=== PATIENT | female | born 1940 | race Caucasian/White ===

== ENCOUNTER → 2017-04-12 04:00 | Outpatient (REF) | payer MEDICARE, SELFPAY ==
[2017-04-12 08:26] LABS: Prothrombin Time Fingerstick 24.9 SEC (11.9-14.4)
== END ==
LOC: OLS.ACW200 04:00
PROVIDERS: Visit Provider Family Medicine
DX: I50.84 End stage heart failure (principal); I27.0 Primary pulmonary hypertension; I35.0 Nonrheumatic aortic (valve) stenosis; J96.10 Chronic respiratory failure, unspecified whether with hypoxia or hypercapnia; I48.91 Unspecified atrial fibrillation
CPT/HCPCS: 36416; 85610

== ENCOUNTER → 2017-04-22 05:00 | Outpatient (REF) | payer MEDICARE, SELFPAY ==
[2017-04-22 11:25] LABS: Prothrombin Time Fingerstick 20.8 SEC (11.9-14.4)
== END ==
LOC: OLS.ACW200 05:00
PROVIDERS: Visit Provider Family Medicine
DX: I50.84 End stage heart failure (principal); I27.0 Primary pulmonary hypertension; I35.0 Nonrheumatic aortic (valve) stenosis; J96.10 Chronic respiratory failure, unspecified whether with hypoxia or hypercapnia; I48.91 Unspecified atrial fibrillation
CPT/HCPCS: 36416; 85610

== ENCOUNTER → 2017-04-26 05:00 | Outpatient (REF) | payer MEDICARE, SELFPAY ==
[2017-04-26 08:32] LABS: Prothrombin Time Fingerstick 21.9 SEC (11.9-14.4)
== END ==
LOC: OLS.ACW200 05:00
PROVIDERS: Visit Provider Family Medicine
DX: I50.84 End stage heart failure (principal); I27.0 Primary pulmonary hypertension; I35.0 Nonrheumatic aortic (valve) stenosis; J96.10 Chronic respiratory failure, unspecified whether with hypoxia or hypercapnia; I48.91 Unspecified atrial fibrillation
CPT/HCPCS: 36416; 85610

== ENCOUNTER → 2017-04-29 05:00 | Outpatient (REF) | payer MEDICARE, SELFPAY ==
[2017-04-29 09:20] LABS: Prothrombin Time Fingerstick 27.2 SEC (11.9-14.4)
== END ==
LOC: OLS.ACW200 05:00
PROVIDERS: Visit Provider Family Medicine
DX: I50.84 End stage heart failure (principal); I27.0 Primary pulmonary hypertension; I35.0 Nonrheumatic aortic (valve) stenosis; J96.10 Chronic respiratory failure, unspecified whether with hypoxia or hypercapnia; I48.91 Unspecified atrial fibrillation
CPT/HCPCS: 36416; 85610

== ENCOUNTER → 2017-05-03 04:00 | Outpatient (REF) | payer MEDICARE, SELFPAY | LOC: OLS.ACW200 04:00 | PROVIDERS: Visit Provider Family Medicine | DX: I50.84 End stage heart failure (principal); I27.0 Primary pulmonary hypertension; I35.0 Nonrheumatic aortic (valve) stenosis; J96.10 Chronic respiratory failure, unspecified whether with hypoxia or hypercapnia; I48.91 Unspecified atrial fibrillation | CPT/HCPCS: 36416; 85610 ==

== ENCOUNTER → 2017-05-06 05:00 | Outpatient (REF) | payer MEDICARE, SELFPAY ==
[2017-05-06 09:16] LABS: Prothrombin Time Fingerstick 36.9 SEC (11.9-14.4)
== END ==
LOC: OLS.ACW200 05:00
PROVIDERS: Visit Provider Family Medicine
DX: I50.84 End stage heart failure (principal); I27.0 Primary pulmonary hypertension; I35.0 Nonrheumatic aortic (valve) stenosis; J96.10 Chronic respiratory failure, unspecified whether with hypoxia or hypercapnia; I48.91 Unspecified atrial fibrillation
CPT/HCPCS: 36416; 85610

== ENCOUNTER → 2017-05-10 05:00 | Outpatient (REF) | payer MEDICARE, SELFPAY ==
[2017-05-10 07:41] LABS: Prothrombin Time Fingerstick 39.4 SEC (11.9-14.4)
[2017-05-10 08:22] LABS: Prothrombin Time (Protime)PT. 38.5 SECONDS (11.7-14.9)
[2017-05-10 09:09] LABS: International Normalized Ratio 3.9
== END ==
LOC: OLS.ACW200 05:00
PROVIDERS: Visit Provider Internal Medicine
DX: I50.84 End stage heart failure (principal); I27.0 Primary pulmonary hypertension; I35.0 Nonrheumatic aortic (valve) stenosis; J96.10 Chronic respiratory failure, unspecified whether with hypoxia or hypercapnia; I48.91 Unspecified atrial fibrillation
CPT/HCPCS: 36416; 85610

== ENCOUNTER → 2017-05-11 05:00 | Outpatient (REF) | payer MEDICARE, SELFPAY ==
[2017-05-11 08:26] LABS: International Normalized Ratio 4.5; Prothrombin Time (Protime)PT. 43.1 SECONDS (11.7-14.9)
== END ==
LOC: OLS.ACW200 05:00
PROVIDERS: Visit Provider Family Medicine
DX: I50.84 End stage heart failure (principal); I27.0 Primary pulmonary hypertension; I35.0 Nonrheumatic aortic (valve) stenosis; J96.10 Chronic respiratory failure, unspecified whether with hypoxia or hypercapnia; I48.91 Unspecified atrial fibrillation
CPT/HCPCS: 36415; 85610

== ENCOUNTER → 2017-05-13 05:00 | Outpatient (REF) | payer MEDICARE, SELFPAY ==
[2017-05-13 08:15] LABS: International Normalized Ratio 3.6; Prothrombin Time (Protime)PT. 36.5 SECONDS (11.7-14.9)
== END ==
LOC: OLS.ACW200 05:00
PROVIDERS: Visit Provider Family Medicine
DX: I50.84 End stage heart failure (principal); I27.0 Primary pulmonary hypertension; I35.0 Nonrheumatic aortic (valve) stenosis; J96.10 Chronic respiratory failure, unspecified whether with hypoxia or hypercapnia; I48.91 Unspecified atrial fibrillation
CPT/HCPCS: 36415; 85610

== ENCOUNTER → 2017-05-14 09:15 | Outpatient (REF) | payer MEDICARE, SELFPAY ==
[2017-05-14 11:43] LABS: International Normalized Ratio 2.4; Prothrombin Time (Protime)PT. 26.5 SECONDS (11.7-14.9)
== END ==
LOC: OLS.ACW200 09:15
PROVIDERS: Visit Provider Family Medicine
DX: I50.84 End stage heart failure (principal); I27.0 Primary pulmonary hypertension; I35.0 Nonrheumatic aortic (valve) stenosis; J96.10 Chronic respiratory failure, unspecified whether with hypoxia or hypercapnia; I48.91 Unspecified atrial fibrillation
CPT/HCPCS: 36415; 85610

== ENCOUNTER → 2017-05-17 04:00 | Outpatient (REF) | payer MEDICARE, SELFPAY ==
[2017-05-17 08:16] LABS: Prothrombin Time Fingerstick 26.2 SEC (11.9-14.4)
== END ==
LOC: OLS.ACW200 04:00
PROVIDERS: Visit Provider Family Medicine
DX: I50.84 End stage heart failure (principal); I27.0 Primary pulmonary hypertension; I35.0 Nonrheumatic aortic (valve) stenosis; J96.10 Chronic respiratory failure, unspecified whether with hypoxia or hypercapnia; I48.91 Unspecified atrial fibrillation
CPT/HCPCS: 36416; 85610

== ENCOUNTER → 2017-05-20 05:00 | Outpatient (REF) | payer MEDICARE, SELFPAY ==
[2017-05-20 08:45] LABS: Prothrombin Time Fingerstick 27.3 SEC (11.9-14.4)
== END ==
LOC: OLS.ACW200 05:00
PROVIDERS: Visit Provider Family Medicine
DX: I50.84 End stage heart failure (principal); I27.0 Primary pulmonary hypertension; I35.0 Nonrheumatic aortic (valve) stenosis; J96.10 Chronic respiratory failure, unspecified whether with hypoxia or hypercapnia; I48.91 Unspecified atrial fibrillation
CPT/HCPCS: 36416; 85610

== ENCOUNTER → 2017-05-24 05:30 | Outpatient (REF) | payer MEDICARE, SELFPAY | LOC: OLS.ACW200 05:30 | PROVIDERS: Visit Provider Family Medicine | DX: I50.84 End stage heart failure (principal); I27.0 Primary pulmonary hypertension; I35.0 Nonrheumatic aortic (valve) stenosis; J96.10 Chronic respiratory failure, unspecified whether with hypoxia or hypercapnia; I48.91 Unspecified atrial fibrillation | CPT/HCPCS: 36416; 85610 ==

== ENCOUNTER → 2017-05-27 05:00 | Outpatient (REF) | payer MEDICARE, SELFPAY ==
[2017-05-27 08:50] LABS: Prothrombin Time (Protime)PT. 51.1 SECONDS (11.7-14.9)
[2017-05-27 08:53] LABS: International Normalized Ratio 5.6
[2017-05-27 08:56] LABS: Prothrombin Time Fingerstick 52.3 SEC (11.9-14.4)
== END ==
LOC: OLS.ACW200 05:00
PROVIDERS: Visit Provider Family Medicine
DX: I50.84 End stage heart failure (principal); I27.0 Primary pulmonary hypertension; I35.0 Nonrheumatic aortic (valve) stenosis; J96.10 Chronic respiratory failure, unspecified whether with hypoxia or hypercapnia; I48.91 Unspecified atrial fibrillation
CPT/HCPCS: 36416; 85610